=== PATIENT | male | born 1945 | race Caucasian/White ===

== ENCOUNTER 2024-04-16 08:03 | Emergency (ER) | payer MEDICARE, SELFPAY ==
[2024-04-16 08:04] VITALS: BP 122/59; PULSE 118; RESP 18; TEMP 36.4; O2SAT 97
[2024-04-16] MEDS: OXYMETAZOLINE HCL 0.05% NAS 15 ML BTL (*BKC) 1 SPRAY (08:20)
[2024-04-16 09:34] LABS: Basophils Absolute Auto 0.1 K/mm3 (0.0-0.1); Basophils Percent Auto 0.8 % (0.2-1.2); Eosinophils Absolute Auto 0.1 K/mm3 (0-0.3); Eosinophils Percent Auto 0.6 % (0-4.4); Hematocrit 37.3 % (42.0-52.0); Hemoglobin 12.9 g/dL (14.0-18.0); Immature Granulocyte Absolute 0.04 K/mm3 (0.00-0.031); Immature Granulocyte Percent A 0.4 % (0-0.5); Lymphocytes Absolute Auto 1.63 K/mm3 (0.9-3.2); Lymphocytes Percent Auto 15.8 % (18.3-44.2); Mean Corpuscular HGB Conc 34.6 g/dl (32-36); Mean Corpuscular Hemoglobin 31.7 pg (26-34); Mean Corpuscular Volume 91.6 fl (80-100); Mean Platelet Volume 10.7 fl (7.4-10.4); Monocytes Absolute Auto 0.8 K/mm3 (0.1-0.6); Monocytes Percent Auto 7.8 % (2.6-8.5); Neutrophils Absolute Auto 7.7 K/mm3 (1.3-6.7); Neutrophils Percent Auto 74.6 % (45.5-73.1); Platelet Count Result 250 k/mm3 (150-375); Red Blood Count 4.07 M/mm3 (4.6-6.20); White Blood Count 10.3 K/mm3 (4.5-10.0)
--- NOTE | 2024-04-16 10:04 | ED.GENADULT ---
HPI - General Adult General Chief complaint: Recheck/Abnormal Lab/Rx Stated complaint: nose bleed since sunday Time Seen by Provider: 04/16/24 08:16 History of Present Illness HPI narrative: This is an 79-year-old male presenting with a nosebleed. Patient started having nosebleed Sunday. He has seen an outside facility and had a rhino rocket placed. This then fell out on its own. He is not follow-up with ENT yet. No use of blood thinners. No other complaints at this time Related Data Allergies Allergy/AdvReac Type Severity Reaction Status Date / Time No Known Allergies Allergy Verified 04/16/24 08:38 Exam Narrative: APPEARANCE: No apparent distress. Head: briskbleeding from LEFT Nare, no identifiable lesion EYES: EOMI, NOSE: Atraumatic NECK: Trachea midline RESPIRATORY: No increased rate of breathing CARDIOVASCULAR: RRR, ABDOMINAL: Non-distended MUSCULOSKELETAl: No obvious deformities NEURO: Alert. Moving 4/4 extremities SKIN:: Warm, dry. Normal color PSYCHIATRIC: Normal affect Course Vital Signs Vital signs: Vital Signs Temperature 97.6 F 04/16/24 08:04 Pulse Rate 118 H 04/16/24 08:04 Respiratory Rate 18 04/16/24 08:04 Blood Pressure 122/59 L 04/16/24 08:04 Pulse Oximetry 97 04/16/24 08:04 Oxygen Delivery Room Air 04/16/24 08:04 Temperature 97.6 F 04/16/24 08:04 Pulse Rate 118 H 04/16/24 08:04 Respiratory Rate 18 04/16/24 08:04 Blood Pressure 122/59 L 04/16/24 08:04 Pulse Oximetry 97 04/16/24 08:04 Oxygen Delivery Room Air 04/16/24 08:04 Procedures Epistaxis Control left: Epistaxis Control Date: 04/16/24 Nose Prepped With: oxymetazoline Direct Inspection: yes and unable to visualize Clots Removed by: blowing nose Device Inserted: hemostatic balloon Patient Tolerated Procedure: well and no complications Medical Decision Making MDM Narrative Medical decision making narrative: -Course: 79-year-old presenting left-sided nose bleed. Right rocket placed with hemostasis. Hemoglobin 12.9. Patient discharged with ENT follow-up. -DDX includes but is not limited to: Posterior bleed, anterior -Procedures: -Interventions: -Shared decision making / Disposition: -RX Vital Signs Vital Signs: Vital Signs Temperature 97.6 F 04/16/24 08:04 Pulse Rate 118 H 04/16/24 08:04 Respiratory Rate 18 04/16/24 08:04 Blood Pressure 122/59 L 04/16/24 08:04 Pulse Oximetry 97 04/16/24 08:04 Oxygen Delivery Room Air 04/16/24 08:04 Temperature 97.6 F 04/16/24 08:04 Pulse Rate 118 H 04/16/24 08:04 Respiratory Rate 18 04/16/24 08:04 Blood Pressure 122/59 L 04/16/24 08:04 Pulse Oximetry 97 04/16/24 08:04 Oxygen Delivery Room Air 04/16/24 08:04 Lab Data 04/16/24 09:25 Labs: Lab Results 04/16/24 Range/Units 09:25 WBC 10.3 H (4.5-10.0) K/mm3 RBC 4.07 L (4.6-6.20) M/mm3 Hgb 12.9 L (14.0-18.0) g/dL Hct 37.3 L (42.0-52.0) % MCV 91.6 (80-100) fl MCH 31.7 (26-34) pg MCHC 34.6 (32-36) g/dl RDW 13.0 (11.5-14.5) % Plt Count 250 (150-375) k/mm3 MPV 10.7 H (7.4-10.4) fl Immature Gran % (Auto) 0.4 (0-0.5) % Neut % (Auto) 74.6 H (45.5-73.1) % Lymph % (Auto) 15.8 L (18.3-44.2) % [place] % (Auto) 7.8 (2.6-8.5) % Eos % (Auto) 0.6 (0-4.4) % Baso % (Auto) 0.8 (0.2-1.2) % Lymph # (Auto) 1.63 (0.9-3.2) K/mm3 [place] # (Auto) 0.8 H (0.1-0.6) K/mm3 Eos # (Auto) 0.1 (0-0.3) K/mm3 Baso # (Auto) 0.1 (0.0-0.1) K/mm3 Abs Immat Gran (auto) 0.04 H (0.00-0.031) K/mm3 Absolute Neuts (auto) 7.7 H (1.3-6.7) K/mm3 Absolute Nucleated RBC 0.000 (0.0-0.012) K/mm3 Nucleated RBC % 0.0 (0.0-0.2) % Discharge Plan Discharge Clinical Impression: Epistaxis Patient Disposition: Home, Self-Care Condition: Stable Instructions: Antibiotic Form, Nosebleed (ED) Additional Instructions: Please call ENT clinic as soon as possible to arrange follow-up. The rhino rocket should not stay in more than 48 hours. You are unable to contact ENT you can return to our emergency department. We may have to transfer to an outside hospital as we do not have ENT on-call this weekend. Follow-up/Referrals: Ananda Summers MD [Physician] - 2 Days (Epistaxis) Abeba,Eddy Portillo MD [Primary Care Provider] -
[2024-04-16 10:32] VITALS: BP 188/91; PULSE 98; RESP 16; TEMP 36.4; O2SAT 97
== END 2024-04-16 10:34 | disposition home or self-care (01) ==
PROVIDERS: Emergency Provider Emergency Medicine; PCP Family Medicine
DX: R04.0 Epistaxis (principal)
CPT/HCPCS: 30901; 36415; 85025; 99283; A9270